=== PATIENT | female | born 2000 | race American Indian/Alaskan Native ===

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

== ENCOUNTER 2019-05-02 00:19 | Emergency (ER) | payer BC ==
[2019-05-02 00:25] VITALS: BP 130/73
== END 2019-05-02 00:25 | disposition left against medical advice (07) ==
LOC: ED 00:19
DX: R50.9 Fever, unspecified (principal); Z53.21 Procedure and treatment not carried out due to patient leaving prior to being seen by health care provider

== ENCOUNTER 2019-05-02 09:55 | Emergency (ER) | payer BC ==
[2019-05-02 10:01] VITALS: BP 130/68
[2019-05-02] MEDS ORDERED: ACETAMINOPHEN W/CODEINE 300-30 MG TAB PO ONE (10:58)
--- NOTE | 2019-05-02 10:58 | Emergency Department Report ---
ED Headache HPI - General Chief Complaint: Headache Stated Complaint: HEADACHE Time Seen by Provider: 05/02/19 10:54 Source: patient, family - History of Present Illness Initial Comments: 19-year-old patient here report that she has headache on and off since Wednesday. Denies any dizziness, nausea or vomiting. Denies any fever or chills. Denies any cough, shortness of breath or chest pain. Denies any blurred vision. Denies any head injury. Reports pain is 7/10 and located to forehead. Pain is intermittent. She says she took Motrin and felt better but she wanted to come in to get checked. Denies being around any individuals that has similar symptoms or with cough, congestion, fever or sore throat. Denies any nasal congestion or runny nose Timing/Duration: episodic, other (3 days) Quality: moderate, achy Head Injury Location: frontal Recent Head Trauma: no recent headache/trauma Modifying Factors: improves with: rest Associated Symptoms: denies: confusion, fatigue, facial pain, fever/chills, flushing, loss of consciousness, nausea/vomiting, nasal congestion, nasal drainage, numbness in legs/feet, rash, seizures, sinus infection, stiff neck, vision changes, weakness Allergies/Adverse Reactions: Allergies No Known Allergies Allergy (Unverified 08/23/17 12:36) Home Medications: Ambulatory Orders Ibuprofen [Motrin] 800 mg PO Q8HR PRN #10 tablet 08/26/17 Sulfamethoxazole/Trimethoprim [Bactrim DS TAB] 1 each PO BID #14 tablet 08/26/17 Acetaminophen [Acetaminophen ER] 650 mg PO Q8H PRN #12 tablet.er 05/02/19 ED Review of Systems ROS: Stated complaint: HEADACHE Other details as noted in HPI Constitutional: denies: chills, fever, weakness ENT: denies: ear pain, throat pain, dental pain, epistaxis, congestion Respiratory: denies: cough, shortness of breath, SOB with exertion, SOB at rest, stridor, wheezing Cardiovascular: denies: chest pain, palpitations, dyspnea on exertion, edema, syncope Gastrointestinal: denies: abdominal pain, nausea, vomiting, diarrhea, constipation, hematemesis, hematochezia Musculoskeletal: denies: back pain, joint swelling, arthralgia, myalgia Skin: denies: rash Neurological: headache. denies: weakness, numbness, paresthesias, confusion, abnormal gait, vertigo ED Past Medical Hx - Past Medical History Previous Medical History?: Yes Hx Diabetes: Yes - Surgical History Past Surgical History?: Yes Additional Surgical History: right ear surgery - Family History Family history: no significant - Social History Smoking Status: Never Smoker Substance Use Type: Alcohol, Marijuana - Medications Home Medications: Home Medications Medication Instructions Recorded Confirmed Last Taken Type Ibuprofen [Motrin] 800 mg PO Q8HR PRN #10 tablet 08/26/17 Unknown Rx Sulfamethoxazole/Trimethoprim 1 each PO BID #14 tablet 08/26/17 Unknown Rx [Bactrim DS TAB] Acetaminophen [Acetaminophen ER] 650 mg PO Q8H PRN #12 tablet.er 05/02/19 Unknown Rx ED Physical Exam - General Limitations: No Limitations General appearance: alert, in no apparent distress - Head Head exam: Present: atraumatic, normocephalic, normal inspection, other (Normal exam) - Eye Eye exam: Present: normal appearance, PERRL, EOMI Pupils: Present: normal accommodation - ENT ENT exam: Present: normal exam, normal orophraynx, mucous membranes moist - Neck Neck exam: Present: normal inspection, full ROM. Absent: tenderness, lymphadeno nikki - Respiratory Respiratory exam: Present: normal lung sounds bilaterally. Absent: respiratory distress, chest wall tenderness - Cardiovascular Cardiovascular Exam: Present: regular rate, normal rhythm, normal heart sounds. Absent: systolic murmur, diastolic murmur - GI/Abdominal GI/Abdominal exam: Present: soft, normal bowel sounds. Absent: distended, tenderness, guarding, rebound, rigid - Extremities Exam Extremities exam: Present: normal inspection, full ROM, normal capillary refill, other (No cce. + 2 pulses in all extremities, no neurovascular compromise). Absent: tenderness, pedal edema, joint swelling, calf tenderness - Back Exam Back exam: Present: normal inspection, full ROM. Absent: tenderness, CVA tenderness (R), CVA tenderness (L), muscle spasm, paraspinal tenderness, verte bral tenderness, rash noted - Neurological Exam Neurological exam: Present: alert, oriented X3, normal gait - Expanded Neurological Exam Expanded Neurological exam: Absent: innattentive, memory loss-remote event, ataxia, receptive aphasia, expressive aphasia, total aphasia, tremor, protecting the airway Patient oriented to: Present: person, place, time Speech: Present: fluid speech Cranial nerves: EOM's Intact: Normal, Gag Reflex: Normal, Tongue Deviation: Normal, Nystagmus: Normal, Facial Sensation: Normal Cerebellar function: Romberg: Normal Upper motor neuron: Pronator Drift: Normal, Sensory Extinction: Normal Sensory exam: Upper Extremity Light Touch: Normal, Upper Extremity Pin Prick: Normal, Upper Extremity Temperature: Normal, UE 2 Point Discrimination: Normal, Lower Extremity Light Touch: Normal, Lower Extremity Pin Prick: Normal, Lower Extremity Temperature: Normal, LE 2 Point Discrimination: Normal Motor strength exam: RUE: 5, LUE: 5, RLE: 5, LLE: 5 DTR: knee (R): 2+, knee (L): 2+, ankle (R): 2+, ankle (L): 2+ Best Eye Response (Maulik): (4) open spontaneously Best Motor Response (Lovejoy): (6) obeys commands Best Verbal Response (Lovejoy): (5) oriented Lovejoy Total: 15 - Psychiatric Psychiatric exam: Present: normal affect, normal mood - Skin Skin exam: Present: warm, dry, intact, normal color. Absent: rash ED Course Vital Signs 05/02/19 10:00 Temperature 98.3 F Pulse Rate 83 Respiratory 16 Rate Blood Pressure 130/68 [Left] O2 Sat by Pulse 100 Oximetry - Reevaluation(s) Reevaluation #1: 05/02/19 11:08 Patient stable throughout ED course. Neurological exam is stable. Received Tylenol 3 2 tablets p.o. with good relief of headache. She is stable and in no acute distress. ED Medical Decision Making - Medical Decision Making This is a 19-year-old female here report headache on and off since Wednesday. She has no other symptoms. Physical exam to include neurological exam is normal. Patient was given Tylenol 3 2 tablets p.o. in emergency room for headache which relieved her headache. Patient is stable in no acute distress and discharged home in stable condition to follow-up with her primary care in 1 to 2 days or return to the emergency room if her symptoms worsen. Prescription given for [id number] Tylenol. Critical care attestation.: If time is entered above; I have spent that time in minutes in the direct care of this critically ill patient, excluding procedure time. ED Disposition Clinical Impression: Headache Qualifiers: Headache type: unspecified Headache chronicity pattern: acute headache Intractability: not intractable Qualified Code(s): R51 - Headache Disposition: DC-01 TO HOME OR SELFCARE Is pt being admited?: No Does the pt Need Aspirin: No Condition: Stable Instructions: Acute Headache (ED) Additional Instructions: Please follow-up with your primary care physician in 1 to 2 days. Turn to the emergency room if your symptoms worsen Increase your fluid intake Take Tylenol [id number] as prescribed Prescriptions: Acetaminophen [Acetaminophen ER] 650 mg PO Q8H PRN #12 tablet.er PRN Reason: Headache Referrals: [facility]– [place][Note 2] [Outside] - 05/03/19 [facility] [Outside] - 05/03/19 [facility] [Outside] - 05/03/19
== END 2019-05-02 11:41 | disposition home or self-care (01) ==
LOC: ED 09:55
DX: R51 Headache (principal); E11.9 Type 2 diabetes mellitus without complications
CPT/HCPCS: 99282